=== PATIENT | male | born 1955 | race Caucasian/White ===

== ENCOUNTER → 2016-09-26 | Outpatient (CLI) | payer BC ==
[~2016-09-26] MED LIST: MULT-506 PO; TRIA0.1C20
== END | disposition home or self-care (01) ==
LOC: C.LAB 14:44
PROVIDERS: ATTEND Nurse Practitioner Family
DX: N40.1 Benign prostatic hyperplasia with lower urinary tract symptoms (principal)

== ENCOUNTER → 2016-12-19 | Outpatient (CLI) | payer BC ==
[2016-12-19 13:07] LABS: BASO % 0.6 %; BASO ABS # 0.03 K/uL (0-0.2); COMPLETE YES; EOS % 2.3 %; HEMATOCRIT 43.8 % (42-52); IG% 0.2 %; LYMPH % 27.7 %; LYMPH ABS # 1.47 K/uL (1.2-3.4); MEAN CELL VOLUME 88.3 fL (80-100); MEAN CORPUSCULAR HEMOGLOBIN 29.6 pg (25-34); MEAN CORPUSCULAR HGB CONC 33.6 g/dl (32-36); MEAN PLATELET VOLUME 10.4 fL (7.4-10.4); MONO % 7.5 %; NEUT % 61.7 %; PLATELET COUNT 221 K/uL (130-400); RED BLOOD COUNT 4.96 M/uL (4.7-6.1); WHITE BLOOD COUNT 5.31 K/uL (4.8-10.8)
[2016-12-19 14:12] LABS: ALT/SGPT 31 U/L (12-78); BLOOD UREA NITROGEN 26 mg/dl (7-18); BUN/CREATININE RATIO 26.3 (10-20); CARBON DIOXIDE 29 mmol/L (21-32); CHLORIDE 107 mmol/L (98-107); CHOLESTEROL 175 mg/dl (0-200); GLUCOSE 79 mg/dl (70-99); POTASSIUM 4.6 mmol/L (3.5-5.1); SODIUM 142 mmol/L (136-145)
[2016-12-19 14:22] LABS: ALKALINE PHOSPHATASE 102 U/L (45-117); AST/SGOT 23 U/L (15-37); CALCIUM 8.9 mg/dl (8.5-10.1); CHOLESTEROL/HDL RATIO 2.1; HDL CHOLESTEROL 82 mg/dl; LDL CHOLESTEROL CALCULATED 86 mg/dl; TRIGLYCERIDES 34 mg/dl (0-150); VERY LOW DENSITY LIPOPROT CALC 7 mg/dl
== END | disposition home or self-care (01) ==
LOC: C.LAB 11:41
PROVIDERS: ATTEND Nurse Practitioner Adult Health
DX: Z13.220 Encounter for screening for lipoid disorders (principal); R00.2 Palpitations; Z11.59 Encounter for screening for other viral diseases

== ENCOUNTER → 2017-09-11 | Outpatient (CLI) | payer OTHER | END | disposition home or self-care (01) | LOC: C.LAB 11:49 | PROVIDERS: ATTEND Urology | DX: C62.90 Malignant neoplasm of unspecified testis, unspecified whether descended or undescended (principal); N40.1 Benign prostatic hyperplasia with lower urinary tract symptoms ==

== ENCOUNTER 2024-11-26 06:07 | Observation (INO) ==
--- NOTE | 2024-11-20 13:47 | Anesthesiology Consultation ---
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 Patient's son works for a [employer] that just opened in [facility], and as a result his father was volunteered to go have testing through this company...EKG showed sinus bradycardia at 50 bpm with premature atrial contractions and nonspecific T-wave abnormalities. Therefore they suggested he come here to get cleared to proceed with max VO2 test...has not had any sustained tachycardias or sustained palpitations...Based on the patient's functional status without limiting cardiopulmonary symptoms, normal LV systolic function, and the fact that PACs are very benign - patient may proceed with his Max VO2 test...may take an extra half to full dose of his Toprol-XL on an as- needed basis if he notices frequent premature beats..." - Per improvement coordinator on 11/20/24: No known infectious disease contacts, current infectious disease symptoms in past 10 days or COVID positive test result in the past 30 days. Chart Review Chart Review: Acceptable Risk for Surgery and Patient NOT seen in Pre Admission Testing History Surgery Operation Date: 11/26/24 09:30 Proposed Procedures p Robotic Assisted Laparoscopic Radical Retrpubic Prostatectomy, Possible Open, Possible Pelvic Lymph Node Dissection - Feroz Cid MD Height/Weight Height: 5 ft 8 in Weight: 71.668 kg Allergies Allergy/AdvReac Type Severity Reaction Status Date / Time No Known Allergies Allergy Verified 11/20/24 13:03 Medications Home Medications Medication Instructions Recorded Confirmed Last Taken multivitamin 1 tab PO DAILY 10/21/19 11/20/24 12/26/23 melatonin 1 mg-CLINTON 50 mg-5HTP 25 1 cap PO HS PRN Sleep 03/16/23 11/20/24 01/07/24 mg-theanine 200 [id number]-xyt-rusfe capsule cholecalciferol (vitamin D3) 25 25 mcg PO DAILY #30 tabs 06/26/23 11/20/24 12/26/23 mcg (1,000 unit) tablet metoprolol succinate 25 mg 25 mg PO QPM #90 tabs 01/11/24 11/20/24 Unknown tablet,extended release 24 hr omega 0-vrk-cbe-fish oil 60 mg-90 1 cap PO DAILY 02/19/24 11/20/24 Unknown mg-500 mg capsule (Fish Oil) alprazolam 1 mg tablet (Xanax) 1 mg PO BID PRN anxiety #30 tabs 04/09/24 11/20/24 Unknown tadalafil 5 mg tablet 5 mg PO DAILY PRN sexual activity 04/09/24 11/20/24 Unknown #30 tabs albuterol sulfate 90 mcg/actuation See Rx Instructions inhalation 07/10/24 11/20/24 Unknown aerosol inhaler (Ventolin HFA) .COMPLEX PRN shortness of breath or wheezing #8.5 grams Past Medical History Medical History (Updated 11/20/24 @ 13:39 by Lubna Romeo PA-C) Anxiety Cholelithiasis Gallbladder polyp Baring's disease hx History of anxiety History of basal cell carcinoma History of colon polyps History of COVID-19 (2020) no hosp; resolved History of tachycardia controlled w/ meds, follows primo/ Dr Le Hx of colonic polyps Hx of testicular cancer ~1972 >> XRT and surgery PAC (premature atrial contraction) Paroxysmal SVT (supraventricular tachycardia) H/O >> controlled w/ meds, follows primo/ Dr Le Prostate cancer (2024) Sensorineural hearing loss (SNHL) of both ears Sleep apnea unable to tolerate device, sleeps on side and tapes mouth Temporomandibular joint disorder no locking/clicking Past Family History Family History Father Myocardial infarction Cancer Heart disease Other No family history of adverse response to anesthesia Denies family history of Ovarian cancer Prostate cancer Breast cancer Colorectal cancer Past Surgical History Surgical History H/O detached retina repair H/O melanoma excision chest area History of colonoscopy History of orchiectomy (~1972) right History of tonsillectomy Hx of cystoscopy Hx of endoscopic retrograde cholangiopancreatography Hx of LASIK [place] teeth removed Social History Smoking Status: Never smoker Do You Dip or Chew Tobacco: No Hx Alcohol Use: Yes Alcohol type: wine alcohol intake frequency: a few times a week Hx Substance Use: No substance use type: does not use Lab Results Anesthesia Preop Results Results Anesthesia Widget: WBC 4.53 K/ul (4.8-10.8) L 11/08/24 Hgb 13.8 g/dl (14.0-18.0) L 11/08/24 Hct 43.2 % (42.0-52.0) 11/08/24 Plt 219 K/uL (130-400) 11/08/24 Na 138 mmol/L (136-145) 11/08/24 K 4.4 mmol/L (3.5-5.1) 11/08/24 Cl 105 mmol/L (98-107) 11/08/24 CO2 30 mmol/L (21-32) 11/08/24 BUN 27 mg/dl (6-23) H 11/08/24 Creat 1.26 mg/dl (0.6-1.4) 11/08/24 Glucose Level 74 mg/dl (70-99(Fasting)) 11/08/24 Testing Electrocardiogram Date: 09/19/24 EKG reviewed by MD cardiology and summarized as below: "EKG showed sinus bradycardia at 50 bpm with premature atrial contractions and nonspecific T-wave abnormalities" Chest X-Ray Date: 07/10/24 No acute cardiopulmonary findings. Other Testing PET scan 10/29/24 Few foci of PSMA uptake within the prostate gland as described above, findings probably correspond with known prostate cancer. Recommended correlation with prior MR imaging of the prostate and histopathology if available, continued follow-up recommended Brain MRI 10/08/24 1. No acute intracranial abnormality. 2. Unremarkable appearance of the internal auditory canals, VII and VIII cranial nerves. 3. No abnormal enhancement.
[2024-11-26] MEDS: LR 15ML/HR IV SCH (06:37)
[2024-11-26] MEDS: HEPARIN SOD 5,000 UNIT/0.5 ML VIAL SC SCH (06:40)
[2024-11-26] MEDS ORDERED: DEXAMETHASONE SOD INJ 4 MG/ML VIAL ONE (06:53)
[2024-11-26] MEDS ORDERED: ROCURONIUM BROMIDE 10 MG/ML 5 ML VIAL IV ONE (06:53)
[2024-11-26] MEDS ORDERED: GLYCOPYRROLATE 0.2 MG/ML VIAL ONE (06:53)
[2024-11-26] MEDS ORDERED: PROPOFOL IV EMULSION 10 MG/ML 20 ML VIAL IV ONE (06:53)
[2024-11-26] MEDS ORDERED: ONDANSETRON INJ 2 MG/ML 2 ML VIAL ONE (06:53)
[2024-11-26] MEDS ORDERED: LIDOCAINE 2% 2 ML VIAL/AMP(20MG/ML) INFIL ONE (06:53)
[2024-11-26] MEDS ORDERED: MIDAZOLAM HCL 1 MG/ML 2ML VIAL ONE (06:54)
[2024-11-26] MEDS ORDERED: fentaNYL citrate PF 100 MCG/2 ML VIAL ONE ×2 (06:54→08:31)
[2024-11-26] MEDS ORDERED: SUGAMMADEX SODIUM 200 MG/2 ML VIAL IV ONE (06:58)
--- NOTE | 2024-11-26 07:15 | History & Physical Report ---
Date of Service November 26, 2024 Assessment & Plan (1) Prostate cancer: Plan Prostate ca here today for prostatectomy risks, benefits, and expectations reviewed History of Present Illness Primary Care Provider: Aldo Rios III, YENY Recently diagnosed prostate cancer presenting today for definitive treatment via prostatectomy Allergies Allergy/AdvReac Type Severity Reaction Status Date / Time No Known Allergies Allergy Verified 11/26/24 06:25 Home Medications Medication Instructions Recorded Confirmed Type multivitamin 1 tab PO DAILY 10/21/19 11/26/24 History melatonin 1 mg-CLINTON 50 mg-5HTP 25 1 cap PO HS PRN Sleep 03/16/23 11/26/24 Hist ory mg-theanine 200 zf-bas-uwguv capsule cholecalciferol (vitamin D3) 25 25 mcg PO DAILY #30 tabs 06/26/23 11/26/24 Rx mcg (1,000 unit) tablet metoprolol succinate 25 mg 25 mg PO QPM #90 tabs 01/11/24 11/26/24 Rx tablet,extended release 24 hr omega 8-fti-zba-fish oil 60 mg-90 1 cap PO DAILY 02/19/24 11/26/24 History mg-500 mg capsule (Fish Oil) alprazolam 1 mg tablet (Xanax) 1 mg PO BID PRN anxiety #30 tabs 04/09/24 11/26/24 Rx tadalafil 5 mg tablet 5 mg PO DAILY PRN sexual activity 04/09/24 11/26/24 Rx #30 tabs albuterol sulfate 90 mcg/actuation See Rx Instructions inhalation 07/10/24 11/26/24 Rx aerosol inhaler (Ventolin HFA) .COMPLEX PRN shortness of breath or wheezing #8.5 grams Past Med/Surg History Problem List Prostate cancer PAC (premature atrial contraction) Sensorineural hearing loss (SNHL) of both ears (Chronic) 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 Left hydrocele Microscopic hematuria MANA (obstructive sleep apnea) Anxiety (Acute) Benign localized hyperplasia of prostate with urinary obstruction (Acute) Fincastle's disease (Acute) Medical History PAC (premature atrial contraction) Sensorineural hearing loss (SNHL) of both ears Prostate cancer (2024) Anxiety Isael's disease hx History of COVID-19 (2020) no hosp; resolved Sleep apnea unable to tolerate device, sleeps on side and tapes mouth Gallbladder polyp Cholelithiasis History of colon polyps Paroxysmal SVT (supraventricular tachycardia) H/O >> controlled w/ meds, follows primo/ Dr Le History of anxiety History of tachycardia controlled w/ meds, follows primo/ Dr Le Hx of colonic polyps History of basal cell carcinoma Hx of testicular cancer ~1972 >> XRT and surgery Temporomandibular joint disorder no locking/clicking Surgical History Hx of endoscopic retrograde cholangiopancreatography Hx of cystoscopy History of colonoscopy H/O melanoma excision chest area History of orchiectomy (~1972) right [place] teeth removed History of tonsillectomy H/O detached retina repair Hx of LASIK Family History Father Myocardial infarction Cancer Heart disease Other No family history of adverse response to anesthesia Denies family history of Ovarian cancer Prostate cancer Breast cancer Colorectal cancer Social History Smoking Status: Never smoker Second Hand Exposure: No; Do You Dip or Chew Tobacco: No; Tobacco Cessation Education Requested by Patient: No Hx Alcohol Use: Yes Alcohol type: wine Alcohol Intake Frequency: 2-4 x/Month Hx Substance Use: No Preferred Language: Mac[place] Communication Ability: Effective Visual Impairment: No Limitations Hearing Ability: Normal Society Editor Required: No Beliefs That Will Affect Care: None marital status: Current Living Situation: Spouse current occupational status: retired current occupation: Manufacturing Manager at [employer] How many Children do You have: 2 Other Information That Helps Us Care for You: No Feels Safe at Home: Yes Safety Concerns: Feels Safe At This Time Childhood Exposure to Second-Hand Smoke: No Diet: other and regular Diet Comment: Whole 30 caffeine: Yes during the past year weight has: remained stable Dental Care, Regularly: Yes Physical Activity Frequency: Daily Seatbelt Use: always Sunscreen Use: Yes Assistive Devices: Glasses and Hearing Aid - Bilateral Assistive Devices Comment: reading glasses Physical Exam Constitutional: well developed and well nourished Neck: neck nontender Respiratory: normal respiratory effort; no respiratory distress and does not use accessory muscles Cardiovascular: Rate/Rhythm: regular rate Vessels: radial pulses present Extremities: no edema Gastrointestinal (Abdomen): Inspection/Auscultation: abdomen normal to inspection Percussion/Palpation: abdomen soft; abdomen nontender and no guarding Musculoskeletal: Head/Neck/Chest: normocephalic and head atraumatic Extremities: extremities normal to inspection Skin: no rashes and no lesions Trauma: no evidence of skin trauma Neurologic: awake; not obtunded Speech / Cognition: normal speech Motor/Sensory: no tremor Psychiatric: Orientation: alert and oriented x 3 Genitourinary: no CVA tenderness Lymphatic: no lymphadenopathy Results & Data Vital Signs (Past 12 Hours) Vital Signs Temp Pulse Resp BP Pulse Ox O2 Del Method 11/26/24 06:28 36.7 C 48 L 16 121/66 100 Room Air
[2024-11-26] MEDS: ceFAZolin 2000MG 2,000 MG/15 ML SYR IV SCH ×2 (07:30→15:15)
[2024-11-26] MEDS: BUPIVACAINE LIPOSOME 1.3% 266 MG/20 ML VIAL ONE (09:56)
[2024-11-26] MEDS: BUPIVACAINE 0.5 % 5 MG/1 ML MPF 30ML VIAL ONE (09:56)
[2024-11-26] MEDS ORDERED: ePHEDrine sulfate 50 MG/5 ML SYR ONE (09:58)
[2024-11-26 10:32] LABS: Basophils # (auto) 0.03 K/uL (0.00-0.20); Basophils % (auto) 0.5 %; Eosinophils # (auto) 0.04 K/uL (0.00-0.50); Eosinophils % (auto) 0.6 %; Hemoglobin 12.8 g/dl (14.0-18.0); Immature Granulocytes # (auto) 0.04 K/uL (0.01-0.20); Immature Granulocytes % (auto) 0.6 %; Lymphocytes # (auto) 1.08 K/uL (1.20-3.40); Lymphocytes % (auto) 16.5 %; Mean Corpuscular Hemoglobin 28.4 pg (25.0-34.0); Mean Corpuscular Volume 88.7 fL (80.0-100.0); Monocytes # (auto) 0.09 K/uL (0.11-0.59); Monocytes % (auto) 1.4 %; Neutrophils # (auto) 5.28 K/uL (1.40-6.50); Neutrophils % (auto) 80.4 %; Platelet Count 158 K/uL (130-400); RDW Coefficient of Variation 13.2 % (11.5-14.5); RDW Standard Deviation 42.9 fL (36.4-46.3); Red Blood Count 4.51 M/uL (4.70-6.10); White Blood Count 6.56 K/ul (4.8-10.8)
[2024-11-26] MEDS ORDERED: PROMETHAZINE HCL 6.25 MG in SODIUM CHLORIDE 0.9% 50 ML IV PRN (10:34)
[2024-11-26] MEDS ORDERED: ePHEDrine sulfate 50 MG/ML AMP IV PRN (10:34)
[2024-11-26] MEDS ORDERED: ATROPINE SULFATE 0.1 MG/ML 10ML SYR IV PRN (10:34)
--- NOTE | 2024-11-26 10:34 | Operative Report ---
PG Post Operative Report Pre & Post Diagnosis Operation Date: 11/26/24 07:30 Pre-Op Diagnosis: Malignant Neoplasm of Prostate Post-Op Diagnosis: Malignant Neoplasm of Prostate I identified the patient and participated in the time-out.: Yes Procedure Operation Date: 11/26/24 07:30 Actual Procedures p Robotic Assisted Laparoscopic Radical Retrpubic Prostatectomy, Possible Open, Possible Pelvic Lymph Node Dissection - Feroz Cid MD Surgeon Feroz Cid MD Bioinformatics Associate Muna Ascencio Estimated Blood Loss 25 Findings Consistent with Post-Op Diagnosis Specimens 1. Periprostatic fat 2. Prostate and seminal vesicles 3. Left pelvic lymph nodes 4. Right pelvic lymph nodes Description of Procedure The patient was identified in the preoperative holding area, appropriate informed consents were reviewed and completed, and he was transported to the operating suite. Subcutaneous heparin was administered in the pre-operative holding area. Upon arrival in the operating suite, he received appropriate antibiotics and general anesthesia. He was positioned in dorsal lithotomy, a B&O suppository was inserted after digital rectal exam, and he was prepped and draped in standard fashion. A Pitts catheter was inserted in the sterile field. A Veress needle was passed per umbilicus with uniform insufflation of the abdomen to 15mmHg. He was placed in steep Trendelenburg position. A periumbilical incision was then made to accommodate a 12mm Visiport with 10mm 0degree laparoscope. Inspection of the abdomen was carried out, and there was no evidence of traumatic entry or injury secondary to the Veress needle. After confirming a clear anterior abdominal wall, ports were subsequently placed in standard robotic prostatectomy fashion without incident. Of note, he has had prior abdominal pelvic radiation for testicular cancer and he had some adhesions particularly from the area around the cecum. I was able to free these sharply utilizing laparoscopic scissors without incident. To begin the robotic portion of the case, the left lateral aspect of the sigmoid was mobilized off of the left pelvic side wall to allow the pouch of Cedric to be appropriately visualized. I then made an incision in the pouch of Cedric, overlying the seminal vesicles. Both SVs as well as the ampullae of the vasa were entirely dissected, with the vasa transected 3cm from the prostate. Of note, this area was relatively scarred in, presumably from his prior radiation therapy. Texture of the tissue was somewhat aberrant from expectations and a standard case. That said, I was able to maintain planes and dissect posterior to the prostate without difficulty. The medial umbilical ligaments were then controlled with bipolar electrocautery just inferior to the umbilicus. Following cauterization, they were divided utilizing monopolar cautery. A peritoneal incision was carried from this location to the medial aspect of the internal inguinal rings bilaterally with care to avoid opening through the ring. This incision was concluded when the vas deferens was reached. Dissection of the bladder and prostate off of the posterior aspect of the pubic arch was completed allowing full visualization of the prostate. The fat overlying the prostate was removed en bloc and passed off the table as a specimen labeled "periprostatic fat". The endopelvic fascia was cleared during this portion of the procedure, and subsequently opened - first on the right and then the left. The incision through the endopelvic fascia began near the prostate-bladder junction and was carried to the apex with extreme care to preserve all lateral levator musculature as well as the periurethral musculature and sphincter complex. I additionally preserved the puboprostatic ligaments. I then controlled the DVC with a 3-0 V-lock suture in overlapping/figure of 8 fashion. The lymph node dissection was then conducted. External iliac vessels were identified on the pelvic side wall. The packet of fat and lymphatic tissue that resides just under the iliac vein was elevated and off of the vein with a split and roll technique. The packet was dissected laterally to the circumflex vein and distally to the obturator nerve which was preserved. The proximal aspect of the packet was carried towards the bifurcation of the iliac vessels. A combination of monopolar and bipolar cautery were used to assist with control. After completing the dissection on both sides, the packets were collected and passed off of the table as specimens labeled "pelvic lymph nodes". My attention then returned to the prostate, with identification of the bladder neck aided by gentle traction on the Pitts catheter and lateral to medial pressure at the presumed level of the bladder neck with the robotic instruments. Of note, his prostate is quite small and detrusor muscle draped over the entire anterior aspect of the prostate. I was able to incise the detrusor muscle and peeled this back off of the anterior surface of the prostate and expose the bladder neck. An anterior cystotomy was made, the Pitts balloon deflated and the catheter guided through the incision to allow anterior retraction. I attempted to preserve maximal bladder neck musculature as I circumferentially dissected around the bladder neck. After incision through the posterior aspect of the mucosa, the dissection was carried through detrusor muscle until the bilateral ampullae of the vasa were identified. The previously dissected vasa and SVs were brought through the incision and used to elevated the prostate anteriorly. An incision in the lateral prostatic fascia was then made bilaterally to facilitate control of the vascular pedicles and preservation of the nerve bundles. Vasculature running along the posterior/lateral aspect of the prostate was preserved as well as the tissue containing the nerves. The pedicles were then controlled with a series of Weck clips. The apical attachments of the prostate were remaining at that stage. The DVC was divided after control with bipolar cautery over the prostate. Continuous inspection from anterior and lateral views allowed me to closely follow the apical contour of the prostate and maximally preserve urethral length and tissue. The prostate was entirely freed at that point, and collected in an EndoCatch bag before being moved out of the field of vision. Hemostasis was confirmed and anastomosis of the bladder and urethra was completed utilizing a double armed V- Lock stitch. A new Pitts catheter was inserted and the anastomosis tested with irrigation. There was no evidence of leak. A tori style stitch was placed bilaterally to functionally marsupialize the area of the lymph node dissection. The robot was undocked, the specimen extracted through expansion of the najma- umbilical camera port. The fascia was closed with a series of 0-PDS figure of 8 stitches. The right miner assistant port was closed in two layers - with a figure of 8 0-Vicryl to reapproximate the fascia followed by 4-0 Monocryl to close the skin. Monocryl was used to close all other skin incisions. All wounds were dressed with Dermabond. Exparel was used for local anesthesia in all incisions. The case was concluded and the patient taken to the PACU in stable condition. Muna Ascencio assisted from incision to closure. I attest to the content of the Intraoperative Record and any orders documented therein. Any exceptions are noted below.
[2024-11-26] MEDS: HYDROmorphone INJ 2 MG/ML SYR/VIAL IV PRN (10:41)
[2024-11-26] MEDS: HYDROmorphone INJ 2 MG/ML SYR/VIAL ONE (10:41)
[2024-11-26 10:49] LABS: BUN Creatinine Ratio 17.3 (10-20); Calcium 8.5 mg/dl (8.6-10.3); Creatinine Clr Calc Pharmacy 61.3 ml/min; Potassium 4.6 mmol/L (3.5-5.1)
[2024-11-26] MEDS ORDERED: KETOROLAC TROMETHAMINE 15 MG/ML VIAL IV PRN (11:37)
[2024-11-26] MEDS ORDERED: ALBUTEROL HFA 8 GM INHALER INH PRN (11:37)
[2024-11-26] MEDS ORDERED: ONDANSETRON INJ 2 MG/ML 2 ML VIAL IV PRN (11:37)
[2024-11-26] MEDS ORDERED: MoRPHine SULFATE 2 MG/ML CARP IV PRN ×2 (11:37)
[2024-11-26] MEDS ORDERED: oxyCODONE HCL IR 5 MG TAB (IMMEDIATE RELEASE) PO PRN (11:37)
[2024-11-26] MEDS ORDERED: ALPRAZolam 0.5 MG TABLET PO PRN (11:37)
[2024-11-26] MEDS: ACETAMINOPHEN 325 MG TAB PO SCH (12:52)
[2024-11-26] MEDS: SODIUM CHLORIDE 0.9% 1,000 ML IV SCH (12:53)
--- NOTE | 2024-11-26 15:25 | Anesthesiology Progress Note ---
Date of Service November 26, 2024 Anesthesia Post Procedure Vital Signs Vital Signs: Temp Pulse Pulse Resp BP Pulse Ox O2 Del Method 11/26/24 14:54 53 L 16 103/58 L 99 Room Air 11/26/24 13:54 36.4 C L 55 L 16 103/59 L 98 Room Air 11/26/24 12:54 36.6 C 65 16 100/53 L 98 Room Air 11/26/24 12:15 51 L 16 106/56 L 98 Room Air 11/26/24 11:45 36.4 C L 62 16 112/66 96 Room Air 11/26/24 11:25 16 L 19 115/58 L 99 Room Air 11/26/24 11:15 36.4 C L 58 L 19 98/51 L 100 Room Air 11/26/24 11:05 59 L 14 108/55 L 100 Nasal Cannula 11/26/24 10:55 66 19 118/55 L 100 Nasal Cannula 11/26/24 10:45 57 L 15 118/58 L 100 Nasal Cannula 11/26/24 10:35 67 19 129/60 100 Nasal Cannula 11/26/24 10:25 73 12 142/63 H 100 Oxymask 11/26/24 10:15 36.3 C L 60 16 104/55 L 100 Oxymask 11/26/24 06:28 36.7 C 48 L 16 121/66 100 Room Air O2 Flow Rate 11/26/24 14:54 11/26/24 13:54 11/26/24 12:54 11/26/24 12:15 11/26/24 11:45 11/26/24 11:25 11/26/24 11:15 11/26/24 11:05 3 11/26/24 10:55 3 11/26/24 10:45 4 11/26/24 10:35 4 11/26/24 10:25 8 11/26/24 10:15 8 11/26/24 06:28 Pain Intensity Abdomen: Pain Intensity: 3 Transfer of Care Handoff Completed per policy Notes Mental Status: alert / awake / arousable and participated in evaluation Nausea / Vomiting: adequately controlled Pain: adequately controlled Airway Patency, RR, SpO2: stable & adequate BP & HR: stable & adequate Hydration State: stable & adequate Anesthetic Complications: no major complications apparent and Pt Satisfied with anesthetic care
[2024-11-26] MEDS: DOCUSATE SODIUM 100 MG CAP PO SCH (20:36)
[2024-11-26] MEDS: METOPROLOL SUCC 25MG EXT REL TAB PO SCH (20:36)
[2024-11-26] MEDS: HEPARIN SOD 5,000 UNIT/0.5 ML VIAL SQ SCH (20:36)
[2024-11-26] MEDS: oxyCODONE HCL IR 5 MG TAB (IMMEDIATE RELEASE) PO PRN (22:14)
[2024-11-27 03:39] VITALS: O2SAT 97
[2024-11-27 07:37] VITALS: RESP 18; TEMP 98.1
[2024-11-27 07:57] LABS: Basophils # (auto) 0.01 K/uL (0.00-0.20); Basophils % (auto) 0.1 %; Hematocrit (blood only) 36.7 % (42.0-52.0); Immature Granulocytes # (auto) 0.03 K/uL (0.01-0.20); Immature Granulocytes % (auto) 0.4 %; Lymphocytes # (auto) 1.17 K/uL (1.20-3.40); Lymphocytes % (auto) 14.1 %; Mean Corpuscular Hemoglobin 28.6 pg (25.0-34.0); Mean Corpuscular Hgb Conc 32.7 g/dL (32.0-36.0); Mean Corpuscular Volume 87.6 fL (80.0-100.0); Mean Platelet Volume 10.7 fL (9.4-12.4); Monocytes # (auto) 0.57 K/uL (0.11-0.59); Monocytes % (auto) 6.9 %; Neutrophils # (auto) 6.51 K/uL (1.40-6.50); Neutrophils % (auto) 78.5 %; Platelet Count 151 K/uL (130-400); RDW Coefficient of Variation 13.3 % (11.5-14.5); RDW Standard Deviation 42.7 fL (36.4-46.3); Red Blood Count 4.19 M/uL (4.70-6.10); White Blood Count 8.29 K/ul (4.8-10.8)
--- NOTE | 2024-11-27 08:06 | Urology Progress Note ---
Date of Service November 27, 2024 Assessment & Plan (1) Prostate cancer: Plan Prostate cancer Postop day #1 status post prostatectomy Recovery very much on pace Plan for discharge home later this morning Admission and Anticipated Discharge Date Admission Date: November 26, 2024 Subjective No issues overnight Urine is clear Ambulatory Physical Exam Physical Exam: Abdomen soft, incisions appropriate Urine clear Results & Data Vital Signs (Past 12 Hours) Vital Signs Temp Pulse Resp BP Pulse Ox O2 Del Method 11/27/24 07:35 36.7 C 41 L 18 102/54 L Room Air 11/27/24 03:38 36.9 C 50 L 16 93/52 L 97 Room Air 11/26/24 23:24 36.7 C 48 L 16 89/50 L 96 Room Air 11/26/24 20:34 36.7 C 50 L 16 104/62 98 Room Air PG Care Time/CCT Total # of Minutes Spent Total Time Spent with Patient: Total time spent is greater than 50% in coordination of care (as documented) at patient's floor/unit and/or counseling patient: Coding Level of Care Code None Diagnoses Prostate cancer C61
[2024-11-27 08:12] LABS: BUN Creatinine Ratio 18.8 (10-20); Creatinine Clr Calc Pharmacy 66.8 ml/min; Potassium 4.5 mmol/L (3.5-5.1)
[2024-11-27] MEDS: CHOLECALCIFEROL 25 MCG (1000 UNITS) TAB PO SCH (08:55)
[2024-11-27] MEDS: MULTIVITAMIN TAB PO SCH (08:55)
[2024-11-27 09:44] VITALS: BP 106/62; PULSE 45
--- NOTE | 2024-11-27 11:01 | Discharge Summary ---
Date of Service November 27, 2024 Admission HPI Per Admitting Provider Recently diagnosed prostate cancer presenting today for definitive treatment via prostatectomy Principal Diagnosis Prostate cancer Discharge Exam Constitutional well developed and well nourished; no acute distress Respiratory normal respiratory effort; no respiratory distress and no labored breathing Gastrointestinal (Abdomen) Inspection/Auscultation: abdomen normal to inspection Musculoskeletal Head/Neck/Chest: normocephalic Neurologic moves all extremities and awake Psychiatric Orientation: alert and oriented x 3 Genitourinary Pitts with clear yellow urine Discharge Data Allergies Allergy/AdvReac Type Severity Reaction Status Date / Time No Known Allergies Allergy Verified 11/26/24 06:25 Procedures Performed Operation Date: 11/26/24 07:30 Actual Procedures p Robotic Assisted Laparoscopic Radical Retrpubic Prostatectomy, Pelvic Lymph Node Dissection - Feroz Cid MD Hospital Course (1) Prostate cancer: Plan Prostate cancer Postop day #1 status post prostatectomy Recovery very much on pace Plan for discharge home later this morning Total Time Total Time Spent Total Time Spent (In Minutes): 20 Discharge Plan Discharge Items Patient Disposition: Home - Self-Care Reason For Visit: Malignant Neoplasm of Prostate Discharge Diagnosis: Malignant neoplasm of prostate Activity: Per Instructions section Lifting: No more than 10 pounds Bathing Comment: Okay to shower after discharge, no tub bath or soaking Sexual Activity: Wait until after follow-up appointment Exercise/Sports: Wait until after follow-up appointment Driving/Machine Use: No driving while taking prescription pain medication Non-emergency contact: Surgeon and Urologist Call non-emergency contact if: your pain is not controlled, you have a fever, your temperature is above 101, your wound has increased redness, your wound has increased drainage and your wound pain has increased Follow-up/Referrals: Aldo Rios III, CRNP [Primary Care Provider] - Diet: Regular Addtl Attending Provider Instructions: Please take all medications as prescribed and keep all follow-ups as scheduled. Please call our office at [phone] with any questions, concerns or need to reschedule appointments for any reason. We are happy to assist you. We have sent an antibiotic to your pharmacy of choice. Please begin antibiotic as prescribed the day BEFORE your scheduled voiding trial at [facility]. Please continue antibiotic every 12 hours through the day AFTER your voiding trial. Activity: We recommend having someone with you for the first few days after surgery to help care for you. For the first 2 weeks after surgery, we would like you to get up and walk around your house. However, we recommend limit physical activity that would increase your heart rate. This will allow your body to rest and heal. Take naps if you feel tired. Don't lift anything heavier than 10 pounds, mow the law or ride a bicycle until your follow-up appointment. Please avoid long car rides. Home Care: Unless directed otherwise, drink 6 to 8 glasses of water a day (enough to keep your urine light colored). This will also help keep a healthy flow of urine. We recommend using a stool softener for the first two weeks to avoid constipation. Pitts Catheter or Suprapubic Catheter care: Keep the catheter well secured with either a leg back or leg strap with large bag. Empty your bag when it's about half full. You may notice some blood in the bag. This is normal after surgery and while the catheter is in place. Use mild soap (such as Dove or Dial) and water to wash the catheter and the head of your penis daily, or more frequently if needed. Return to your normal diet, we encourage good protein intake to promote healing. You may shower as normal. Please avoid tub baths or soaking until catheter removed and incisions well healed. Wearing sweat pants while you have the catheter is recommended, they will be more comfortable. Follow-up Your follow up appointments for having your catheter removed, and follow up with your physician should already be scheduled. If you have any questions regarding this, please contact our office. Your final pathology report will be discussed at your physician follow-up appointment. Call [facility] at [phone] right away if you have any of the following: Chest pain or trouble breathing (call 111 or go to the hospital) Fever of 101F or higher, uncontrolled vomiting Heavy bleeding, clots, or bright red blood from the catheter Catheter that falls out or stops draining Foul-smelling discharge from your catheter Redness, swelling, warmth, or increased pain at your incision site Drainage, pus, or bleeding from your incision Pending Studies at Discharge: Yes (Pathology) Stand-Alone Forms: [employer], Smoking Cessation Medications and DC Order Prescriptions: New ciprofloxacin HCl 500 mg tablet 500 mg PO BID Qty: 6 0RF Rx Instructions: Start 1 day prior to catheter removal Continued metoprolol succinate 25 mg tablet extended release 24 hr 25 mg PO QPM Qty: 90 3RF alprazolam [Xanax] 1 mg tablet 1 mg PO BID PRN (Reason: anxiety) Qty: 30 0RF tadalafil 5 mg tablet 5 mg PO DAILY PRN (Reason: sexual activity) Qty: 30 6RF multivitamin Tablet 1 tab PO DAILY cholecalciferol (vitamin D3) 25 mcg (1,000 unit) tablet 25 mcg PO DAILY Qty: 30 0RF [id number] 1-50-25-200 mg capsule 1 cap PO HS PRN (Reason: Sleep) omega 0-yde-acf-fish oil [Fish Oil] 60-90-500 mg capsule 1 cap PO DAILY albuterol sulfate [Ventolin HFA] 90 mcg/actuation HFA aerosol inhaler See Rx Instructions inhalation .COMPLEX PRN (Reason: shortness of breath or wheezing) Qty: 8.5 0RF Rx Instructions: 1-2 INH 4-6 PRN; Discharge Orders: Discharge Order (Routine); Ordered 11/27/24 Ordered By: Muna Carrera/Other Patient Handouts: What Is Prostate Cancer?, Urinary Catheter Bag Empty Clean, Indwelling Urinary Catheter Dc, Leg Bag Care Dc Admission Data Admit Date/Time: 11/26/24 10:10 Attending Provider: Feroz Cid Admit Provider: Feroz Cid Primary Care Provider: Aldo Rios III Other Interventions: Discharge Summary Assessment (RN) Last Done: 11/27/24 11:15 Coding Level of Care Code 10737 IN/OBS DISCH 30 MIN/LESS Diagnoses Prostate cancer C61
== END 2024-11-27 12:14 | disposition home or self-care (01) ==
LOC: ASU 06:07 → INTOOBSV 10:10 → 3W 10:10